=== PATIENT | male | born 1970 | race African-American/Black ===

== ENCOUNTER 2018-05-07 10:39 | Emergency (ER) | payer BC ==
[~2018-05-07] VITALS: Ht 180.3 cm; Wt 109.1 kg
[2018-05-07 10:55] VITALS: Ht 180.3 cm; Wt 109.1 kg
[2018-05-07] MEDS ORDERED: HYDROCHLOROTHIA25 MG (10:57)
[2018-05-07] MEDS ORDERED: COZAAR100 MG (10:57)
[2018-05-07] MEDS ORDERED: ISONIAZID100 MG (11:03)
[2018-05-07] MEDS ORDERED: LIPITOR20 MG (11:03)
[2018-05-07] MEDS ORDERED: COZAAR50 MG (11:03)
[2018-05-07] MEDS ORDERED: RIFADIN300 MG (11:04)
[2018-05-07 11:46] LABS: BASOPHILS 0 % (0-2); EOSINOPHILS 0.4 % (0-7); HEMATOCRIT 40.5 % (42.0-54.0); HEMOGLOBIN 13.6 g/dL (13.5-17.5); LYMPHOCYTES 11.9 % (15-50); MCH 26.6 pg (26.0-34.0); MCHC 33.6 g/dL (31.0-37.0); MCV 79.1 fL (80.0-100.0); MEAN PLATELET VOLUME 9.1 fL (7.4-10.4); MONOCYTES 10.3 % (2-11); NEUTROPHILS 77.4 % (40-80); PLATELET COUNT 192 10x3/uL (130-400); RBC 5.12 10x6/uL (4.20-6.10); RDW 14.6 % (11.5-14.5); WBC 2.6 10x3/uL (4.8-10.8)
[2018-05-07 12:47] VITALS: BP 106/69
== END 2018-05-07 12:49 | disposition home or self-care (01) ==
LOC: D.ER 10:39
PROVIDERS: Emergency Medicine
DX: D70.3 Neutropenia due to infection (principal); B34.9 Viral infection, unspecified; I10 Essential (primary) hypertension; Z20.1 Contact with and (suspected) exposure to tuberculosis